=== PATIENT | female | born 1990 | race Hispanic/Latino ===

== ENCOUNTER 2022-01-30 20:31 | Emergency (ER) | payer OTHER ==
[~2022-01-30] VITALS: Ht 154.9 cm; Wt 81.6 kg
[2022-01-30] MEDS ORDERED: ONDANSETRON HCL INJ 2MG/ML 2ML 2 MG/ML VIAL IV STA (21:13)
[2022-01-30] MEDS ORDERED: KETOROLAC TROMETHAMINE 30 MG/ML VIAL IV STA (21:13)
[2022-01-30] MEDS ORDERED: KETOROLAC TROMETHAMINE 30 MG/ML VIAL ONE (21:55)
[2022-01-30] MEDS ORDERED: ONDANSETRON HCL INJ 2MG/ML 2ML 2 MG/ML VIAL ONE (21:55)
[2022-01-30] MEDS ORDERED: SODIUM CHLORIDE 0.9% 1000ML 1,000 ML IV SCH (22:00)
[2022-01-30] MEDS ORDERED: NAPROSYN500 MG PO (22:56)
[2022-01-30] MEDS ORDERED: HYDROCHLOROTHIA25 MG PO (22:57)
[2022-01-30] MEDS ORDERED: FIORICET 50-301 EACH PO (22:58)
[2022-01-30 23:15] VITALS: BP 158/106
== END 2022-01-30 23:15 | disposition home or self-care (01) ==
LOC: FSED 20:41
DX: R51.9 Headache, unspecified (principal); R07.89 Other chest pain; E11.65 Type 2 diabetes mellitus with hyperglycemia; I10 Essential (primary) hypertension; B20 Human immunodeficiency virus [HIV] disease; Z87.442 Personal history of urinary calculi
CPT/HCPCS: 70450; 71046; 80053; 81003; 81025; 82553; 84484; 85025; 85379; 93005; 99284; J1885; J2405; J7030